=== PATIENT | female | born 1975 | race African-American/Black ===

== ENCOUNTER → 2016-11-23 | Outpatient (CLI) | payer OTHER ==
[~2016-11-23] MED LIST: ACETAMINOPHEN PO; GLUCOPHAGE500 MG PO; LISINOPRIL-HCTZ1 T21 PO; LORTAB 7.5-5001 TAB PO; MOTRIN400 M1 PO; PHENERGAN25 MG PO; VANIQA TOP
--- NOTE | ~2016-11-23 | EKG ---
PATIENT: EZIO PETERSON UNIT #: [id number] Ventricular Rate: 107 BPM Atrial Rate: 107 BPM P-R Interval: 162 ms QRS Duration: 86 ms Q-T Interval: 344 ms QTC Calculation(Bezet): 459 ms P Lockwood: 56 degrees Calculated R Lockwood: 33 degrees Calculated T Lockwood: 32 degrees Diagnosis Line: Sinus tachycardia Diagnosis Line: Nonspecific T wave abnormality Diagnosis Line: Otherwise normal ECG Diagnosis Line: When compared with ECG of 24-OCT-2015 12:28, Diagnosis Line: Vent. rate has increased BY 44 BPM Diagnosis Line: QT has lengthened Diagnosis Line: Confirmed by SHANNON BLACKMAN MD ([id number]) on 11/25/2016 Diagnosis Line: 5:31:29 PM INTERPRETING MD: HIRAL WHITE
[2016-11-23 16:50] LABS: BLOOD UREA NITROGEN 7 mg/dL (9-23); BUN/CREATININE RATIO 11.66; CARBON DIOXIDE 26 mmol/L (22-31); CHLORIDE 105 mmol/L (100-111); CREATININE SERUM 0.6 mg/dL (0.6-1.4); GLOM FILT RATE Estimated ABOVE60 mL/min (>60); GLUCOSE FASTING 109 mg/dL (70-110); POTASSIUM 3.4 mmol/L (3.5-5.1); SODIUM 135 mmol/L (135-145)
== END | disposition home or self-care (01) ==
LOC: CAMB 15:05
PROVIDERS: Surgery
DX: Z01.818 Encounter for other preprocedural examination (principal)
CPT/HCPCS: 36415; 80048; 93005

== ENCOUNTER → 2016-11-25 | Day surgery (SDC) | payer OTHER ==
--- NOTE | ~2016-11-25 | OR ---
Unit #: [id number] #: [id number] Patient: EZIO PETERSON [id number] [address] [place], [place] [address] [id number] O MR#: [id number] NAME: EZIO PETERSON ROOM: Date of Procedure: 11/25/2016 Admission Date: 11/25/2016 Surgeon: Bao Quispe M.D. : 1975 Attending Physician: Bao Quispe M.D. Referring Physician: Bao Quispe M.D. Primary Care Physician: Kishore Ramos M.D. OPERATIVE REPORT PREOPERATIVE DIAGNOSES 1. Palpable mass, right breast, 12 o'clock position. 2. Mammographic abnormality, left breast, at the 10 o'clock, 12 o'clock, and 3 o'clock positions. POSTOPERATIVE DIAGNOSES 1. Palpable mass, right breast, 12 o'clock position. 2. Mammographic abnormality, left breast, at the 10 o'clock, 12 o'clock, and 3 o'clock positions. PROCEDURES PERFORMED 1. Excisional biopsy of palpable mass, right breast, 12 o'clock position. 2. Needle localization excisional biopsy of mammographic abnormality, left breast, at 10 o'clock, 12 o'clock and 3 o'clock positions. ANESTHESIA General LMA anesthesia with 0.25% Marcaine plain local anesthesia. FINDINGS Each mammographic localized lesion was seen within the specimen on specimen radiograph. The palpable lesion was sent to pathology. SPECIMENS Sent to pathology. COMPLICATIONS None apparent. CONDITION The patient tolerated the procedure well. INDICATIONS FOR PROCEDURE The patient is a 41-year-old black female, who has had multiple solid lesions found on both breasts. Multiple image guided biopsies had been performed. No malignancies have been found; however, there have been some interval changes. As a result, she presents at this time for excision of palpable mass on right breast 12 o'clock position as well as excision of the mammographic abnormalities of the left breast at the 10 o'clock, 12 o'clock and 3 o'clock positions. DESCRIPTION OF PROCEDURE After obtaining informed consent as well as receiving preoperative Unit #: [id number] #: [id number] Patient: EZIO PETERSON antibiotics, the patient who had undergone needle localization of the 3 lesions in the left breast earlier in the day was brought to the operating room and after adequate general LMA anesthesia was obtained, had both breast prepped and draped in a sterile fashion. It should be noted that she had knee high SCDs as well. Beginning first on the left side, an incision was made in the medial aspect of the breast. It was taken down through the skin with a knife and the area around the hook of the wire was grasped with an Allis clamp, excised circumferentially with electrocautery with good hemostasis and sent to mammography, where on specimen radiograph, the lesion was found to be within the specimen. In a similar fashion at the two other sites that being the 12 o'clock position and 3 o'clock positions, each lesion was excised circumferentially with good hemostasis and sent to mammography where the lesion was found within the specimen on specimen radiograph. Each wound was irrigated, hemostasis obtained with the Bovie, infiltrated with 0.25% Marcaine plain local anesthesia. Each incision was closed at the subdermal level with interrupted 3-0 Vicryl sutures and each skin incision was closed with a running 4-0 Vicryl subcuticular stitch. An occlusive dressing of benzoin and Steri-Strips were applied over each incision followed by a Telfa and a Tegaderm dressing. Needle counts, sponge counts, and instrument counts were all correct as reported by the scrub nurse x2. At this point in time, gown and gloves were changed and different instruments were used on the right side. An incision was made over the palpable lesion. It was taken down through the skin and subdermal tissues with a knife and down to the level of lesion with electrocautery. The lesion was grasped with an Allis clamp, excised circumferentially with electrocautery with good hemostasis and sent to pathology. The wound was irrigated, hemostasis was obtained with the Bovie, infiltrated with 0.25% Marcaine plain local anesthesia. The deep tissues were reapproximated with interrupted 3-0 Vicryl suture. The skin was closed with 4-0 Vicryl subcuticular stitch. Benzoin Steri-Strips were applied over the wound in an occlusive manner followed by a Telfa dressing and a Tegaderm dressing. Needle counts, sponge counts, and instrument counts were all correct as reported by the scrub nurse x2. The patient went from the operative room to the recovery room in stable condition. Dictated by... Vamshi Francisco/xavi TD: 11/26/2016 04:40 JOB #: [id number] [facility] OPERATIVE REPORT X Bao Quispe MD X PROCEDURE OPERATIVE NOTE
--- NOTE | ~2016-11-25 | MY20 ---
[facility] A Service of [facility] & [facility] RADIOLOGY TEXT RESULTS PATIENT: EZIO PETERSON LOCATION: [facility] : [birth year] UNIT #: [id number] AGE: [address]: Bao Quispe MD SEX: F ORDER DR: [id number] [facility] [address]. [place], [place] [address] [id number] O MR#: [id number] Acc #: [id number] NAME: EZIO PETERSON. : 1975 SEX: F STUDY DATE/TIME: 11/25/2016 8:07 UNIT: [facility] ROOM: STUDY DESCRIPTION: MY Breast Ndl Loc 1st Attending Physician: Bao Quispe M.D. Referring Physician: Bao Quispe M.D. Ordering Physician: Bao Quispe M.D. Primary Care Physician: Kishore Ramos M.D. MEDICAL IMAGING REPORT This report is preliminary unless electronic signature is present EXAM 1. Needle wire localization, left breast 2. Needle wire localization, left breast, second lesion. 3. Needle wire localization, left breast, third lesion. 4. Mammographic guidance for needle placement. 5. Left diagnostic mammogram. 6. Specimen radiograph times 3. 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 Surgical excisional biopsy of these 3 lesions is to be performed today and needle wire localization was requested prior to surgical excision. TECHNIQUE Written, informed consent was obtained, including a discussion of risks, benefits and alternatives. Time-out was performed confirming correct patient, date of , procedure and procedure site. First, attention was turned to the 9 o'clock lesion. Using medial approach, the overlying skin was cleansed in usual sterile fashion and buffered lidocaine was used for local anesthesia followed by placement of a 7-cm Kopans needle through the biopsy site in the 9 o'clock posterior third of the left breast. Post placement mammogram was obtained and marked with the wire tip located 5.1 cm from the skin and the biopsy clip located 1.6 cm from the skin. Next, the breast was placed in LM positioning and a lateral approach was used. The overlying skin was cleansed in usual sterile fashion followed by anesthetizing the skin and deeper tissues with buffered lidocaine. A 7-cm Kopans needle was placed through the biopsy site in the 3 o'clock posterior third of the left breast, using mammographic guidance. Post placement mammogram was obtained and marked with the wire tip located 7.9 ST[facility] A Service of [facility] RADIOLOGY TEXT RESULTS PAT[facility]: [facility] PETERSON [id number] [birth year] UNIT #: [id number] AGE: [address]: Bao Quispe MD SEX: F ORDER DR: cm from the skin and the biopsy clip located 5.9 cm from the skin. Next, attention was turned to the 12 o'clock lesion. The breast was in LM positioning and the lateral skin was cleansed in usual sterile fashion. Buffered lidocaine was used for local anesthesia followed by placement of a 7-cm Kopans needle through the biopsy site in the 12 o'clock anterior third of the left breast, using mammographic guidance. Post placement mammogram was obtained and marked with the wire tip located 8.1 cm from the lateral skin and the biopsy clip located 6.2 cm from the lateral skin. The patient tolerated the procedure without complication, and the wires were secured prior to transport. Of note, Dr. Quispe requested that the needles were left in place within the breast and this could only be performed for the 3 o'clock and 12 o'clock lesions and not for the 9 o'clock lesion due to the need to compress the entire medial left breast for lateral approach for the other lesions. Specimen radiography for the 9 o'clock lesion demonstrated the closest biopsy margin to be approximately 5 mm from the biopsy clip. Dr. Quispe was notified of these specimen margins while in the operating room. The wire and clip were seen within the biopsy specimen. Specimen radiography for the 12 o'clock lesion demonstrates the wire and biopsy clip to be seen in entirety within the specimen with good radiographic margins. Specimen radiography for the 3 o'clock posterior third lesion suggests a close radiographic margin posteriorly; however, this cannot be definitively confirmed given density of the surrounding breast tissue. The biopsy clip and the wire were seen within the specimen. All the specimen radiograph findings were discussed with Dr. Bao Quispe during surgery in the operating room today and he acknowledged receipt. IMPRESSION 1. Successful mammographic guided needle wire localization of 3 left breast lesions as described above. 2. All of the biopsy clips and wires are seen on specimen radiograph. There may be close margins for the 9 o'clock and 3 o'clock lesions as described above. Dictated by... Gareth Leonard M.D. THIS IS AN ELECTRONICALLY VERIFIED REPORT Gareth Leonard M.D. at 11/28/2016 6:38 PM JAZMINE/greyson [facility]. [facility] A Service of [facility] & [facility] RADIOLOGY TEXT RESULTS PATIENT: [facility]ZIO PETERSON [id number] [birth year] UNIT #: [id number] AGE: [address]: Bao Quispe MD SEX: F ORDER DR: TD: 11/26/2016 02:36 JOB #: [id number] MEDICAL IMAGING REPORT COPY
== END | disposition home or self-care (01) ==
LOC: CSUR 06:51
DX: D24.2 Benign neoplasm of left breast (principal); D24.1 Benign neoplasm of right breast; N60.22 Fibroadenosis of left breast; N60.21 Fibroadenosis of right breast; M41.9 Scoliosis, unspecified; F17.210 Nicotine dependence, cigarettes, uncomplicated; E11.9 Type 2 diabetes mellitus without complications; I10 Essential (primary) hypertension; E66.01 Morbid (severe) obesity due to excess calories; B35.1 Tinea unguium; M77.32 Calcaneal spur, left foot; N76.0 Acute vaginitis; B96.89 Other specified bacterial agents as the cause of diseases classified elsewhere; F43.10 Post-traumatic stress disorder, unspecified; Z79.899 Other long term (current) drug therapy; Z98.890 Other specified postprocedural states; Z81.1 Family history of alcohol abuse and dependence; Z81.8 Family history of other mental and behavioral disorders; Z82.49 Family history of ischemic heart disease and other diseases of the circulatory system; Z82.5 Family history of asthma and other chronic lower respiratory diseases; Z83.3 Family history of diabetes mellitus; Z68.37 Body mass index [BMI] 37.0-37.9, adult
CPT/HCPCS: 76098; 82947; 84132; 84703; 88305; 88342; J0330; J0690; J2250; J2405; J2710; J3010

== ENCOUNTER 2017-01-07 22:47 | Emergency (ER) | payer OTHER | END 2017-01-07 23:50 | disposition home or self-care (01) | LOC: CFTX 22:47 | DX: T81.30XA Disruption of wound, unspecified, initial encounter (principal); I10 Essential (primary) hypertension; E11.9 Type 2 diabetes mellitus without complications; F17.210 Nicotine dependence, cigarettes, uncomplicated | CPT/HCPCS: 82947; 87070; 87077; 87186; 87205; 99283 ==